=== PATIENT | female | born 2000 | race Caucasian/White ===

== ENCOUNTER 2023-04-16 18:10 | Day surgery (SDC) | payer OTHER ==
[2023-04-16 18:46] VITALS: BMI 38.3
[2023-04-16 19:57] LABS: Fetal Membranes Rupture No Membranes Rupture (No Rupture)
[2023-04-16] MEDS ORDERED: hydrALAZINE 20 MG/ML VIAL SLOW IVP PRN (20:22)
== END 2023-04-16 20:55 | disposition home or self-care (01) ==
LOC: CSHLD/OP 18:10
PROVIDERS: ATTEND Student in an Organized Health Care Education/Training Program
DX: O41.8X30 Other specified disorders of amniotic fluid and membranes, third trimester, not applicable or unspecified (principal); Z3A.37 37 weeks gestation of pregnancy
CPT/HCPCS: 84112

== ENCOUNTER 2023-05-09 03:10 | Inpatient (IN) | payer OTHER ==
[2023-05-09 03:22] VITALS: BMI 39.9
[2023-05-09] MEDS ORDERED: Misoprostol 100 MCG TAB ONE (06:11)
[2023-05-09] MEDS: Misoprostol 100 MCG TAB VAG SCH ×2 (06:20→12:58)
[2023-05-09] MEDS ORDERED: Carboprost 250 MCG/ML AMP IM PRN (06:23)
[2023-05-09] MEDS ORDERED: Promethazine HCl 25 MG/ML VIAL IM PRN ×3 (06:23→23:58)
[2023-05-09] MEDS ORDERED: Ondansetron PF 4 MG/2 ML Vial IVP PRN ×4 (06:23→23:58)
[2023-05-09] MEDS ORDERED: HYDROcodone/Acetaminophen 5/325 mg Tablet PO PRN (06:23)
[2023-05-09] MEDS ORDERED: Methylergonovine 0.2 MG/ML VIAL IM PRN (06:23)
[2023-05-09] MEDS ORDERED: hydrALAZINE 20 MG/ML VIAL SLOW IVP PRN (06:23)
[2023-05-09] MEDS ORDERED: Ibuprofen 800 MG TAB PO PRN (06:23)
[2023-05-09] MEDS ORDERED: fentaNYL 50 mcg/mL 1 mL Vial SLOW IVP PRN ×2 (06:23→23:58)
[2023-05-09] MEDS ORDERED: Lidocaine 1% (PF) 30 ML VIAL SC PRN (06:23)
[2023-05-09] MEDS ORDERED: Misoprostol 200 MCG TAB PR PRN (06:23)
[2023-05-09] MEDS ORDERED: Acetaminophen 500 MG TAB PO PRN (06:23)
[2023-05-09] MEDS ORDERED: Diphenoxylate HCl/Atropine Tablet PO PRN (06:23)
[2023-05-09] MEDS ORDERED: Oxytocin 30 units/NS 500 ML 500 ML IV SCH ×2 (06:30)
[2023-05-09] MEDS ORDERED: Lactated Ringer's 1,000 ML IV SCH (06:30)
[2023-05-09 07:09] LABS: Hematocrit 35.6 % (34.9-44.5); Hemoglobin 12.2 g/dL (12.0-15.5); Mean Corpuscular HGB CONC 34.3 g/dL (32.0-36.0); Mean Corpuscular Hemoglobin 31.5 pg (27.0-33.0); Mean Platelet Volume 11.4 fl (7.4-10.4); Platelet Count 255 10x3/uL (150-450); RBC Distribution Width 13.5 % (11.5-14.5); Red Blood Cell (RBC) Count 3.87 10x6/uL (3.90-5.03); White Blood Cell (WBC) Count 8.7 10x3/uL (3.5-10.5)
[2023-05-09 07:30] LABS: HBSAg Index 0.14 S/CO (0-0.99); Hep B Surf Ag - L&D Non-Reactive S/CO (NonReactive); Syphilis Antibody Nonreactive (Nonreactive); Syphilis Antibody Index 0.04 S/CO (<1.00 Non-Reactive)
[2023-05-09] MEDS ORDERED: fentaNYL/Ropivacaine Epidural 100 ML ONE (17:32)
[2023-05-09] MEDS ORDERED: Lactated Ringer's 500 ML IV PRN (18:06)
[2023-05-09] MEDS ORDERED: Naloxone HCl 0.4 mg/ml Vial IVP PRN ×4 (18:06→23:58)
[2023-05-09] MEDS ORDERED: ePHEDrine Sulfate 50 MG/10 ML VIAL SLOW IVP PRN (18:06)
[2023-05-09] MEDS ORDERED: Moisturizing Cream (Eucerin) 113 GM JAR TOP PRN ×2 (18:06→23:58)
[2023-05-09] MEDS ORDERED: diphenhydrAMINE 50 MG/ML VIAL IVP PRN ×2 (18:06→23:58)
[2023-05-09] MEDS ORDERED: Acetaminophen 325 MG TAB PO PRN (18:06)
[2023-05-09] MEDS ORDERED: Communication Order-Pharmacy FS SCH ×2 (18:15→23:45)
[2023-05-09] MEDS ORDERED: fentaNYL 2 mcg/Ropivacaine 0.2% Epidural 100 ML CADD EPIDURAL SCH (18:15)
[2023-05-09] MEDS ORDERED: CEFAZOLIN 2 GM VIAL ONE (22:43)
[2023-05-09] MEDS ORDERED: Azithromycin 500 MG VIAL ONE (22:43)
[2023-05-09] MEDS ORDERED: fentaNYL 50 mcg/mL 1 mL Vial ONE (22:47)
[2023-05-09] MEDS ORDERED: Morphine PF 10 MG/10 ML VIAL ONE (22:47)
[2023-05-09] MEDS ORDERED: Misoprostol 200 MCG TAB ONE (22:56)
[2023-05-09] MEDS ORDERED: Tranexamic Acid 1,000 MG/10 ML VIAL ONE (22:56)
[2023-05-09] MEDS ORDERED: Ondansetron PF 4 MG/2 ML Vial ONE (23:15)
[2023-05-09] MEDS ORDERED: Oxytocin 10 UNITS/ML VIAL ONE (23:15)
[2023-05-09] MEDS ORDERED: Ketorolac Tromethamine 30 MG/ML VIAL IVP SCH (23:45)
[2023-05-09] MEDS ORDERED: Promethazine HCl 25 MG SUPP PR PRN (23:58)
[2023-05-09] MEDS ORDERED: HYDROmorphone 0.5 MG/0.5 ML SYRINGE SLOW IVP PRN (23:58)
[2023-05-09] MEDS ORDERED: Meperidine HCl/PF 25 MG/ML VIAL SLOW IVP PRN (23:58)
[2023-05-09] MEDS ORDERED: Naloxone HCl 0.4 mg/ml Vial IV PRN (23:58)
[2023-05-10] MEDS ORDERED: Promethazine HCl 25 MG/ML VIAL IM PRN (02:02)
[2023-05-10] MEDS ORDERED: hydrALAZINE 20 MG/ML VIAL SLOW IVP PRN (02:02)
[2023-05-10] MEDS ORDERED: Boostrix 0.5 ML (Tdap) VIAL (>/=7 yrs of age) IM ONE (02:02)
[2023-05-10] MEDS ORDERED: Lanolin Ointment 7 GM TUBE TOP PRN (02:02)
[2023-05-10] MEDS ORDERED: Ondansetron PF 4 MG/2 ML Vial IVP PRN (02:02)
[2023-05-10] MEDS ORDERED: diphenhydrAMINE 25 MG CAP PO PRN (02:02)
[2023-05-10] MEDS ORDERED: Acetaminophen 325 MG TAB PO PRN (02:02)
[2023-05-10] MEDS ORDERED: Bisacodyl 10 MG SUPP PR PRN (02:02)
[2023-05-10] MEDS ORDERED: HYDROcodone/Acetaminophen 5/325 mg Tablet PO PRN ×2 (02:02→11:45)
[2023-05-10 03:55] LABS: Hematocrit 31.8 % (34.9-44.5); Hemoglobin 10.7 g/dL (12.0-15.5); Mean Corpuscular HGB CONC 33.6 g/dL (32.0-36.0); Mean Corpuscular Hemoglobin 31.5 pg (27.0-33.0); Mean Corpuscular Volume 93.5 fl (81.6-98.3); Mean Platelet Volume 10.2 fl (7.4-10.4); Platelet Count 203 10x3/uL (150-450); RBC Distribution Width 13.4 % (11.5-14.5); White Blood Cell (WBC) Count 14.5 10x3/uL (3.5-10.5)
[2023-05-10] MEDS: Docusate 100 MG CAP PO SCH ×2 (08:07→22:05)
[2023-05-10] MEDS: Ferrous Sulfate 325 MG TAB PO SCH ×2 (08:07→22:05)
[2023-05-10] MEDS: Prenatal Vitamin 1 TAB PO SCH (08:07)
[2023-05-10] MEDS: Ketorolac Tromethamine 30 MG/ML VIAL IVP PRN ×3 (08:08→20:13)
[2023-05-10] MEDS: Simethicone Chewable 80 MG TAB PO PRN ×2 (14:13→20:13)
[2023-05-11] MEDS: HYDROcodone/Acetaminophen 5/325 mg Tablet PO PRN ×3 (01:50→10:37)
[2023-05-11] MEDS: Simethicone Chewable 80 MG TAB PO PRN ×4 (01:54→14:47)
[2023-05-11] MEDS: Ibuprofen 800 MG TAB PO SCH ×2 (06:16→14:47)
[2023-05-11] MEDS: Docusate 100 MG CAP PO SCH (08:56)
[2023-05-11] MEDS: Prenatal Vitamin 1 TAB PO SCH (08:56)
[2023-05-11] MEDS: Ferrous Sulfate 325 MG TAB PO SCH (08:59)
[2023-05-11] MEDS ORDERED: hydrALAZINE 20 MG/ML VIAL SLOW IVP PRN (15:51)
[2023-05-11] MEDS ORDERED: Lactated Ringer's 1,000 ML IV SCH (16:00)
[2023-05-11 18:27] VITALS: BP 126/78; TEMP 98.8
== END 2023-05-11 18:10 | disposition home or self-care (01) | DRG 788 ==
LOC: CSHLD 03:10 → CSHPP 05-10 02:16
PROVIDERS: ADMIT Student in an Organized Health Care Education/Training Program; ATTEND Student in an Organized Health Care Education/Training Program
PROC: 10D00Z1 Extraction of Products of Conception, Low, Open Approach (ICD-10-PCS; principal; 2023-05-09)
PROC: 10907ZC Drainage of Amniotic Fluid, Therapeutic from Products of Conception, Via Natural or Artificial Opening (ICD-10-PCS; 2023-05-09)
DX: O76 Abnormality in fetal heart rate and rhythm complicating labor and delivery (principal); Z3A.40 40 weeks gestation of pregnancy; Z37.0 Single live birth
CPT/HCPCS: 36415; 51702; 85027; 86780; 86850; 86900; 86901; 87340; J1200; J1885; J2274; J2405; J2590; J3010

== ENCOUNTER 2023-12-24 20:17 | Emergency (ER) | payer BC ==
[2023-12-24] MEDS ORDERED: Lidocaine 1% (PF) 30 ML VIAL ONE (21:22)
== END 2023-12-24 22:35 | disposition home or self-care (01) ==
LOC: CSHERS 20:17
DX: S91.115A Laceration without foreign body of left lesser toe(s) without damage to nail, initial encounter (principal); W26.8XXA Contact with other sharp object(s), not elsewhere classified, initial encounter
CPT/HCPCS: 12001; J2001